=== PATIENT | male | born 1960 | race Caucasian/White ===

== ENCOUNTER 2022-04-23 12:33 | Observation (INO) | payer MEDICAID, SELFPAY ==
[2022-04-23] VITALS (7 sets, daily range): BP systolic 130–158; BP diastolic 79–101; PULSE 81–107; RESP 14–18; TEMP 36.6–37.2; O2SAT 97–100; BMI 25.7
--- NOTE | 2022-04-23 14:03 | EKG12_ITS ---
Test Reason : PRE-OP Blood Pressure : / mmHG Vent. Rate : 079 BPM Atrial Rate : 079 BPM P-R Int : 162 ms QRS Dur : 094 ms QT Int : 376 ms P-R-T Axes : 077 080 078 degrees QTc Int : 431 ms Normal sinus rhythm Normal ECG No previous ECGs available Confirmed by DANA GAY, BRANDY ([id number]), graphics editor SHE MOELLER ([id number]) on 04/25/2022 10:16:48 AM Referred By: ILENE Confirmed By:BRANDY CORTEZ MD
--- NOTE | 2022-04-23 14:43 | NURSING ---
Report given to OR and patient being taken down at this time to surgery
--- NOTE | 2022-04-23 15:00 | PCM.HP.STD ---
HPI - General General Date of Admission: 04/23/22 Date of Service: 04/23/22 Chief Complaint: Left renal colic HPI Narrative RANDALL PARKS, is a 61 M who presents to the outside emergency room second time with severe pain in the left side from stones in the left ureter and the left proximal ureter hydronephrosis today when taken the patient to surgery for cystoscopy and stent placed to alleviate the pain. And then he will be discharged home to his [place] [facility] COUNTS INCLUDE 234 BEDS AT THE [facility] Medical History Alcohol abuse Anxiety Bipolar disorder COPD (chronic obstructive pulmonary disease) CPAP (continuous positive airway pressure) dependence Dementia Depression GERD (gastroesophageal reflux disease) High cholesterol History of stress test Hypertension Kidney stones Migraines Seizures Smoker Home Medications acetaminophen 650 mg tablet 650 mg PO Q4H PRN Pain 04/23/22 [History Last Taken Unknown] atorvastatin 10 mg tablet 10 mg PO QPM cholesterol 04/23/22 [History Last Taken Unknown] buspirone 10 mg tablet 10 mg PO BID mood 04/23/22 [History Last Taken Unknown] ciprofloxacin HCl 500 mg tablet (Cipro) 500 mg PO BID antibiotic 04/23/22 [History Last Taken Unknown] clonidine HCl 0.1 mg tablet 0.1 mg PO TID blood pressure 04/23/22 [History Last Taken Unknown] cyanocobalamin (vitamin B-12) 500 mcg tablet 1,000 mcg PO DAILY Check with primary doctor 04/23/22 [History Last Taken Unknown] diltiazem HCl 180 mg capsule,extended release 24 hr 180 mg PO DAILY hypertension 04/23/22 [History Last Taken Unknown] donepezil 10 mg tablet 10 mg PO QHS Check with primary doctor 04/23/22 [History Last Taken Unknown] famotidine 20 mg tablet 20 mg PO DAILY stomach 04/23/22 [History Last Taken Unknown] ferrous sulfate 325 mg (65 mg iron) tablet 325 mg PO BID supplement 04/23/22 [History Last Taken Unknown] fluticasone 250 mcg-salmeterol 50 mcg/dose blistr powdr for inhalation (Advair Diskus) 1 inh inhalation BID copd 04/23/22 [History Last Taken Unknown] lactulose 10 gram/15 mL oral solution 30 ml PO BID constipation 04/23/22 [History Last Taken Unknown] mirtazapine 45 mg tablet 45 mg PO QHS mood 04/23/22 [History Last Taken Unknown] naltrexone 50 mg tablet 25 mg PO DAILY alcohol dependence 04/23/22 [History Last Taken Unknown] nortriptyline 10 mg capsule 10 mg PO QHS Check with primary doctor 04/23/22 [History Last Taken Unknown] ondansetron HCl 4 mg tablet 4 mg PO Q8H PRN Nausea 04/23/22 [History Last Taken Unknown] roflumilast 500 mcg tablet 500 mcg PO DAILY copd 04/23/22 [History Last Taken Unknown] sertraline 100 mg tablet 200 mg PO QHS mood 04/23/22 [History Last Taken Unknown] sumatriptan succinate 50 mg tablet 50 mg PO Q2H PRN migraines 04/23/22 [History Last Taken Unknown] tamsulosin 0.4 mg capsule (Flomax) 0.4 mg PO DAILY kidney stones 04/23/22 [History Last Taken Unknown] thiamine HCl (vitamin B1) 100 mg tablet 100 mg PO DAILY supplement 04/23/22 [History Last Taken Unknown] topiramate 100 mg tablet 100 mg PO BID heart 04/23/22 [History Last Taken Unknown] umeclidinium 62.5 mcg/actuation blister powder for inhalation 1 inh inhalation DAILY Check with primary doctor 04/23/22 [History Last Taken Unknown] Allergy/AdvReac Type Severity Reaction Status Date / Time Penicillins Allergy unknown, Verified 04/23/22 12:34 was told not to take it as a child Surgical History unable to obtain Social History Smoking Status: Current every day smoker tobacco type: cigarettes ROS Constitutional Constitutional: Denies chills, fever(s) or malaise Eyes Eyes: Denies blurry vision or change in vision ENT HEENT: Reports none Cardiovascular Cardiovascular: Denies chest pain or palpitations Respiratory/Chest Respiratory/Chest: Denies cough or shortness of breath with exertion Gastrointestinal Gastrointestinal: Denies abdominal pain, constipation or diarrhea Musculoskeletal Musculoskeletal: Denies back pain, joint stiffness or joint swelling Integumentary Integumentary: Denies dry skin, jaundice, lesions or rash Neurologic Neurologic: Denies confusion, syncope or weakness Psychiatric Psychiatric: Reports none; Denies anxiety or depression Endocrine Endocrinology: Denies excessive sweating, fatigue or flushing Hematologic/Lymphatic Hematologic/Lymphatic: Denies anemia, easy bleeding or easy bruising Vital Signs Vital Signs Vital Signs: 04/23/22 13:21 Temperature 97.9 F Temperature Source Oral Pulse Rate 81 Respiratory Rate 18 Blood Pressure 142/90 H Blood Pressure Mean 107 Blood Pressure Source Monitor Blood Pressure Position Semi-Fowlers Blood Pressure Location Right Arm Pulse Ox 99 Oxygen Delivery Method Room Air Weight Weight: 93.5 kg Body Mass Index (BMI) 25.7 Physical Exam Const alert and oriented x3 General Appearance: cooperative HEENT normocephalic and head/scalp atraumatic Eyes PERRL and EOMs intact bilaterally Neck supple, no JVD and no carotid bruits Resp normal respiratory effort, normal air movement and clear to auscultation bilaterally Cardio regular rate and no murmurs GI normal to inspection, nondistended, normoactive bowel sounds and soft to palpation Extremity normal capillary refill General Extremity: no tenderness to palpation of joints or extremities; Negative for edema Skin no rashes or lesions noted and no wounds General Skin Exam: no breakdown Neuro CN's II-XII intact bilaterally Psych affect normal Appearance: appropriate Results Medical Records Data Attestation: I reviewed the patient's medical records Lab / Micro Data Attestation: I reviewed the patient's lab results. CT scan reviewed Assessment & Plan Assessment/Plan (1) Kidney stones: PLAN: Left kidney stones causing obstruction severe pain off-and-on plan for stent placement to stabilize the patient and then will bring him back for shockwave lithotripsy.
--- NOTE | 2022-04-23 15:17 | PCM.OPRPT ---
Report of Operation Date of Procedure: 04/23/22 Pre-Operative Diagnosis: Left obstructing kidney stone Post-Operative Diagnosis: Same Surgery/Procedure Performed:: Cystoscopy left stent placement left retrograde pyelogram Description of Surgical Findings:: Patient was taken back to the operating room after induction of general anesthesia, the patient was placed in dorsolithotomy position. The urethra and genitals were prepped and draped in usual sterile fashion. Using a 21 Gambian rigid cystourethroscope the entire length of the urethra was normal then went into the bladder. Identified the trigone the left and right ureteral orifice. I then cannulated the Left ureteral orifice and advanced a wire up into the kidney. I then backloaded a 5 Gambian open ended catheter over the wire and injected contrast to delineate the anatomy. After the retrograde was performed I then used fluoroscopic images and guidance to advanced a wire up into the kidney and over the 0.038 glidewire I advanced a 6 Gambian by 26 cm double pigtail stent. I then pulled the 0.038 Glidewire off and the stent coiled in the kidney bladder good position. The bladder was then drained. We confirmed the position of the stent by fluoroscopy. Patient anesthetic was reversed and was taken back to the PACU in good condition. Surgeon: Estrada Guerra Type of Anesthesia: General Drains: left stent Admit VTE Documentation VTE Present on Admission: No VTE Mechan Device Prophylaxis: SCD's
--- NOTE | 2022-04-23 15:18 | DCINST_ITS ---
Discharge Instructions Diet Discharge Diet: No restrictions Activity Discharge Activity: Return to Normal Activity Follow Up Care Please Follow Up With: Estrada Guerra MD When: call office to get set up for shockwave lithotripsy Test Results: Test results from this visit will be discussed in further detail at your follow- up appointment, if applicable. Discharge Plan Admission Admit Date/Time: 04/23/22 12:08 Attending Provider: Estrada Guerra Primary Care Provider: Becky Gil Discharge Orders/Prescriptions Prescriptions: No Action ciprofloxacin HCl [Cipro] 500 mg Tablet 500 mg PO BID Rx Instructions: for 10 days, started 04/18/22 buspirone 10 mg Tablet 10 mg PO BID mirtazapine 45 mg Tablet 45 mg PO QHS fluticasone propion-salmeterol [Advair Diskus] 250-50 mcg/dose Blister With Device 1 inh INHALATION BID clonidine HCl 0.1 mg Tablet 0.1 mg PO TID atorvastatin 10 mg Tablet 10 mg PO QPM diltiazem HCl [DILT-CD] 180 mg Capsule,Extended Release 24hr 180 mg PO DAILY donepezil 10 mg Tablet 10 mg PO QHS ondansetron HCl [Zofran] 4 mg Tablet 4 mg PO Q8H PRN (Reason: Nausea) sertraline 100 mg Tablet 200 mg PO QHS acetaminophen 650 mg Tablet 650 mg PO Q4H PRN (Reason: Pain) famotidine 20 mg Tablet 20 mg PO DAILY nortriptyline 10 mg Capsule 10 mg PO QHS naltrexone 50 mg Tablet 25 mg PO DAILY sumatriptan succinate 50 mg Tablet 50 mg PO Q2H PRN (Reason: migraines) Rx Instructions: do not exceed 4 doses per 24 hrs thiamine HCl (vitamin B1) 100 mg Tablet 100 mg PO DAILY cyanocobalamin (vitamin B-12) 500 mcg Tablet 1,000 mcg PO DAILY tamsulosin [Flomax] 0.4 mg Capsule 0.4 mg PO DAILY ferrous sulfate 325 mg (65 mg iron) Tablet 325 mg PO BID topiramate 100 mg Tablet 100 mg PO BID lactulose 10 gram/15 mL Solution 30 ml PO BID roflumilast 500 mcg Tablet 500 mcg PO DAILY umeclidinium 62.5 mcg/actuation Blister With Device 1 inh INHALATION DAILY Referrals / Follow Up: Becky Gil MD [Primary Care Provider] - Disposition Discharge Orders: Discharge Patient (Routine); Ordered 04/23/22 Ordered By: Dr. Estrada Guerra
[2022-04-23] MEDS: oxyCODONE 5 MG Tablet PO (18:11)
[2022-04-23] MEDS: Lactated Ringers 1,000 ML 100 ML IV (19:33)
--- NOTE | 2022-04-23 20:02 | NURSING ---
pt having severe left side abd pain and pain with urinating rating it a 10/10, bladder scanned 123 left in bladder then voided. will call dr lal for pain meds
[2022-04-23] MEDS: Phenazopyridine 95 MG Tablet PO (20:52)
[2022-04-23] MEDS: Morphine 2 MG/ML Syringe IV (20:58)
[2022-04-24] MEDS: oxyCODONE 5 MG Tablet PO ×3 (00:21→14:18)
[2022-04-24 02:30] VITALS: BP 129/85; PULSE 63; RESP 16; TEMP 36.8; O2SAT 96
[2022-04-24] MEDS: Morphine 2 MG/ML Syringe IV (03:24)
[2022-04-24] MEDS: Phenazopyridine 95 MG Tablet PO (05:41)
[2022-04-24] MEDS: Lactated Ringers 1,000 ML 100 ML IV (05:41)
[2022-04-24] MEDS: Acetaminophen 325 MG Tablet 650 MG PO ×2 (07:45→14:18)
--- NOTE | 2022-04-24 07:55 | PCM.TXEXTCAR ---
Diet Diet Order/Speech Therapy: 04/23/22 15:18 Diet: Regular - General Is pt able to select menu?: Yes Problem/Diagnosis (1) Kidney stones: Status: Acute Code(s): N20.0 - Calculus of kidney Plan: Left kidney stones causing obstruction severe pain off-and-on plan for stent placement to stabilize the patient and then will bring him back for shockwave lithotripsy. Allergies/Procedures Done in Hospital Allergies Penicillins Allergy (Verified 04/23/22 12:34) unknown, was told not to take it as a child Type of Care/Length of Stay Estimated LOS: More Than 30 Days Type of Care Needed: Skilled Rehab Potential: Good Prognosis: Good Additional Orders/Day of Discharge Day of Discharge: 04/24/22 Follow Up Care Please Follow Up With: Estrada Guerra MD Discharge Plan Admission Admit Date/Time: 04/23/22 12:33 Primary Reason for Your Visit: kidney stone Attending Provider: Estrada Guerra Primary Care Provider: Becky Gil Discharge Orders/Prescriptions Prescriptions: New ibuprofen 600 mg tablet 600 mg PO Q6H PRN (Reason: pain) 7 Days Qty: 20 0RF Continued ciprofloxacin HCl [Cipro] 500 mg Tablet 500 mg PO BID Rx Instructions: for 10 days, started 04/18/22 buspirone 10 mg Tablet 10 mg PO BID mirtazapine 45 mg Tablet 45 mg PO QHS fluticasone propion-salmeterol [Advair Diskus] 250-50 mcg/dose Blister With Device 1 inh INHALATION BID clonidine HCl 0.1 mg Tablet 0.1 mg PO TID atorvastatin 10 mg Tablet 10 mg PO QPM diltiazem HCl 180 mg Capsule,Extended Release 24hr 180 mg PO DAILY donepezil 10 mg Tablet 10 mg PO QHS ondansetron HCl 4 mg Tablet 4 mg PO Q8H PRN (Reason: Nausea) sertraline 100 mg Tablet 200 mg PO QHS acetaminophen 650 mg Tablet 650 mg PO Q4H PRN (Reason: Pain) famotidine 20 mg Tablet 20 mg PO DAILY nortriptyline 10 mg Capsule 10 mg PO QHS naltrexone 50 mg Tablet 25 mg PO DAILY sumatriptan succinate 50 mg Tablet 50 mg PO Q2H PRN (Reason: migraines) Rx Instructions: do not exceed 4 doses per 24 hrs thiamine HCl (vitamin B1) 100 mg Tablet 100 mg PO DAILY cyanocobalamin (vitamin B-12) 500 mcg Tablet 1,000 mcg PO DAILY tamsulosin [Flomax] 0.4 mg Capsule 0.4 mg PO DAILY ferrous sulfate 325 mg (65 mg iron) Tablet 325 mg PO BID topiramate 100 mg Tablet 100 mg PO BID lactulose 10 gram/15 mL Solution 30 ml PO BID roflumilast 500 mcg Tablet 500 mcg PO DAILY umeclidinium 62.5 mcg/actuation Blister With Device 1 inh INHALATION DAILY Referrals / Follow Up: Estrada Guerra MD [Med Staff - Active Staff] - Becky Gil MD [Primary Care Provider] - Disposition Discharge Orders: Discharge Patient (Routine); Ordered 04/24/22 Ordered By: Dr. Estrada Guerra
[2022-04-24 08:01] VITALS: BP 142/95; PULSE 78; RESP 16; TEMP 36.8; O2SAT 100
[2022-04-24 11:42] VITALS: BP 130/92; PULSE 81; RESP 16; TEMP 37.1; O2SAT 94
--- NOTE | 2022-04-24 12:09 | CASEMGMT ---
Social Work Pt is a current correction resident at [facility]. Per physician, pt is ready for discharge today. Phone call to Carmen at [facility] and pt can return today. Orders and negative covid test faxed to [place]. Transportation arranged with physician ambulance for 2:00 pickup via wheelchair van. Phone call to pt Guardian David Reyez and updated on pt discharge and he is agreeable. SW met with pt and informed of discharge plan and he is also agreeable. Carmen at [facility] and pt nurse notified of discharge time. Plan: [facility], intermediate level of care GURJIT Cowan
--- NOTE | 2022-04-24 13:08 | NURSING ---
attempted to call report to [place] but no answer. message left to return call
== END 2022-04-24 15:23 ==
PROVIDERS: Admitting Provider Urology; PCP Internal Medicine Infectious Disease; Visit Provider Urology
PROC: (CPT 52005; principal; 2022-04-23 14:50)
DX: N20.0 Calculus of kidney (principal); J44.9 Chronic obstructive pulmonary disease, unspecified; F31.9 Bipolar disorder, unspecified; E78.00 Pure hypercholesterolemia, unspecified; F17.210 Nicotine dependence, cigarettes, uncomplicated; I10 Essential (primary) hypertension; Z79.899 Other long term (current) drug therapy; K21.9 Gastro-esophageal reflux disease without esophagitis
CPT/HCPCS: 52005; 00910; 97802; C1769; C2617; 76000; 87426; 93005; 96361; 96374; 96376; 99218; 99406; J7120; G0378

== ENCOUNTER 2022-05-03 11:27 | Day surgery (SDC) | payer MEDICAID, SELFPAY ==
[2022-05-03] VITALS (7 sets, daily range): BP systolic 102–113; BP diastolic 69–86; PULSE 76–93; RESP 16–18; TEMP 36.6–36.9; O2SAT 97–100; BMI 25.3
--- NOTE | 2022-05-03 11:45 | RAD_ITS ---
STUDY: X-RAY - ABDOMEN/PELVIS REASON FOR EXAM: Male, 61 years old. preop TECHNIQUE: Single AP view of the abdomen / pelvis. COMPARISON: None. FINDINGS: Normal visualized lung bases. There is an unremarkable bowel gas pattern. The left-sided double-J stent catheter seen with the proximal tip in the renal pelvis and distal tip in the left side of the bladder. There is a 9.4 mm calculus in the left renal pelvis. Normal soft tissue structures. There are diffuse degenerative changes of the visualized lumbar spine. RAD/Abdomen Single View IMPRESSION: 19.4 mm calculus in the left renal pelvis. A left-sided double-J stent catheter is seen. Electronically Signed: Jacek Vick MD at 11:56 EDT ,
[2022-05-03] MEDS: Lactated Ringers 1,000 ML 15 ML IV (12:05)
[2022-05-03] MEDS: Cefazolin 2 GM in 0.9% Normal Saline 100 ML IV (13:00)
--- NOTE | 2022-05-03 13:21 | PCM.HP.STD ---
HPI - General General Date of Service: 05/03/22 HPI Narrative RANDALL PARKS, is a 61 M who presents for treatment of left kidney stone and remove stent [facility] Medical History (Updated 04/28/22 @ 14:57 by Lynette Pinto) Alcohol abuse Anemia Anxiety Bipolar disorder COPD (chronic obstructive pulmonary disease) CPAP (continuous positive airway pressure) dependence Dementia Depression Fatty liver GERD (gastroesophageal reflux disease) High cholesterol History of diverticulitis History of stress test Hypertension Kidney stones Migraines Seizures Sleep apnea Smoker Uses wheelchair Wears glasses Home Medications acetaminophen 650 mg tablet 650 mg PO Q4H PRN Pain 04/23/22 [History Last Taken Unknown] atorvastatin 10 mg tablet 10 mg PO QPM cholesterol 04/23/22 [History Last Taken Unknown] buspirone 10 mg tablet 10 mg PO BID mood 04/23/22 [History Last Taken 05/03/22] clonidine HCl 0.1 mg tablet 0.1 mg PO TID blood pressure 04/23/22 [History Last Taken 05/03/22] cyanocobalamin (vitamin B-12) 500 mcg tablet 1,000 mcg PO DAILY Check with primary doctor 04/23/22 [History Last Taken Unknown] diltiazem HCl 180 mg capsule,extended release 24 hr 180 mg PO DAILY hypertension 04/23/22 [History Last Taken 05/03/22] donepezil 10 mg tablet 10 mg PO QHS dementia 04/23/22 [History Last Taken Unknown] famotidine 20 mg tablet 20 mg PO DAILY stomach 04/23/22 [History Last Taken 05/03/22] ferrous sulfate 325 mg (65 mg iron) tablet 325 mg PO BID supplement 04/23/22 [History Last Taken 05/03/22] fluticasone 250 mcg-salmeterol 50 mcg/dose blistr powdr for inhalation (Advair Diskus) 1 inh inhalation BID copd 04/23/22 [History Last Taken Unknown] ibuprofen 600 mg tablet 600 mg PO Q6H PRN pain 7 days #20 tabs 04/23/22 [Rx Last Taken Unknown] lactulose 10 gram/15 mL oral solution 30 ml PO BID constipation 04/23/22 [History Last Taken Unknown] mirtazapine 45 mg tablet 45 mg PO QHS mood 04/23/22 [History Last Taken Unknown] naltrexone 50 mg tablet 25 mg PO DAILY alcohol dependence 04/23/22 [History Last Taken 05/03/22] nortriptyline 10 mg capsule 10 mg PO QHS Check with primary doctor 04/23/22 [History Last Taken Unknown] ondansetron HCl 4 mg tablet 4 mg PO Q8H PRN Nausea 04/23/22 [History Last Taken Unknown] roflumilast 500 mcg tablet 500 mcg PO DAILY copd 04/23/22 [History Last Taken 05/03/22] sertraline 100 mg tablet 200 mg PO QHS mood 04/23/22 [History Last Taken Unknown] sumatriptan succinate 50 mg tablet 50 mg PO Q2H PRN migraines 04/23/22 [History Last Taken Unknown] tamsulosin 0.4 mg capsule (Flomax) 0.4 mg PO DAILY kidney stones 04/23/22 [History Last Taken 05/03/22] thiamine HCl (vitamin B1) 100 mg tablet 100 mg PO DAILY supplement 04/23/22 [History Last Taken 05/03/22] topiramate 100 mg tablet 100 mg PO BID heart 04/23/22 [History Last Taken 05/03/22] oxycodone-acetaminophen 5 mg-325 mg tablet 1 tab PO Q6H PRN Pain 04/28/22 [History Last Taken Unknown] umeclidinium 62.5 mcg/actuation blister powder for inhalation (Incruse Ellipta) 1 inh inhalation DAILY 04/28/22 [History Last Taken Unknown] Allergy/AdvReac Type Severity Reaction Status Date / Time Penicillins Allergy unknown, Verified 05/03/22 12:18 was told not to take it as a child Surgical History (Updated 04/28/22 @ 14:47 by Lynette Pinto) History of colonoscopy History of esophagogastroduodenoscopy (EGD) History of hernia repair Social History Smoking Status: Current every day smoker tobacco type: cigarettes Vital Signs Vital Signs Vital Signs: 05/03/22 12:21 05/03/22 12:21 Temperature 97.9 F Temperature Source Temporal Pulse Rate 91 Respiratory Rate 18 Respiratory Pattern Normal Blood Pressure 108/74 Blood Pressure Mean 85 Blood Pressure Source Monitor Blood Pressure Position Semi-Fowlers Blood Pressure Location Left Arm Pulse Ox 97 Oxygen Delivery Method Room Air Weight Weight: 92 kg Body Mass Index (BMI) 25.3 Results Radiology Impression KUB X-Ray 05/03/22 11:45 IMPRESSION: 19.4 mm calculus in the left renal pelvis. A left-sided double-J stent catheter is seen. Electronically Signed: Jacek Vick MD at 11:56 EDT ,
--- NOTE | 2022-05-03 13:22 | DCINST_ITS ---
Discharge Instructions Diet Discharge Diet: No restrictions and Light diet - advance as tolerated Activity Discharge Activity: Return to Normal Activity and No Restrictions Follow Up Care Test Results: Test results from this visit will be discussed in further detail at your follow- up appointment, if applicable. Discharge Plan Admission Primary Reason for Your Visit: kidney stone Attending Provider: Estrada Guerra Primary Care Provider: Becky Gil Discharge Orders/Prescriptions Prescriptions: Continued buspirone 10 mg Tablet 10 mg PO BID mirtazapine 45 mg Tablet 45 mg PO QHS fluticasone propion-salmeterol [Advair Diskus] 250-50 mcg/dose Blister With Device 1 inh INHALATION BID clonidine HCl 0.1 mg Tablet 0.1 mg PO TID atorvastatin 10 mg Tablet 10 mg PO QPM diltiazem HCl 180 mg Capsule,Extended Release 24hr 180 mg PO DAILY donepezil 10 mg Tablet 10 mg PO QHS ondansetron HCl 4 mg Tablet 4 mg PO Q8H PRN (Reason: Nausea) sertraline 100 mg Tablet 200 mg PO QHS acetaminophen 650 mg Tablet 650 mg PO Q4H PRN (Reason: Pain) famotidine 20 mg Tablet 20 mg PO DAILY nortriptyline 10 mg Capsule 10 mg PO QHS naltrexone 50 mg Tablet 25 mg PO DAILY sumatriptan succinate 50 mg Tablet 50 mg PO Q2H PRN (Reason: migraines) Rx Instructions: do not exceed 4 doses per 24 hrs thiamine HCl (vitamin B1) 100 mg Tablet 100 mg PO DAILY cyanocobalamin (vitamin B-12) 500 mcg Tablet 1,000 mcg PO DAILY tamsulosin [Flomax] 0.4 mg Capsule 0.4 mg PO DAILY ferrous sulfate 325 mg (65 mg iron) Tablet 325 mg PO BID topiramate 100 mg Tablet 100 mg PO BID lactulose 10 gram/15 mL Solution 30 ml PO BID roflumilast 500 mcg Tablet 500 mcg PO DAILY ibuprofen 600 mg tablet 600 mg PO Q6H PRN (Reason: pain) 7 Days Qty: 20 0RF oxycodone-acetaminophen 5-325 mg Tablet 1 tab PO Q6H PRN (Reason: Pain) Incruse Ellipta 62.5 mcg/actuation Blister With Device 1 inh INHALATION DAILY Referrals / Follow Up: Estrada Guerra MD [Med Staff - Active Staff] - Becky Gil MD [Primary Care Provider] - Disposition Disposition (needs filled in before D/C Order can be placed): Home, Self Care
--- NOTE | 2022-05-03 13:22 | PCM.OPRPT ---
Report of Operation Date of Procedure: 05/03/22 Pre-Operative Diagnosis: Left kidney stone Post-Operative Diagnosis: same Surgery/Procedure Performed:: cystoscopy and left stent removal, and left ESWL Description of Surgical Findings:: Patient presents to the hospital for treatment of a kidney stone with shockwave lithotripsy. In the preoperative area and x-ray was done to confirm the location of the stone. The x-ray was reviewed and the stone location was reviewed. In the preoperative setting I spoke with the patient regarding the treatment of the stone how the treatment would be conducted and the expectations after surgery. The patient understands there is a risk of bleeding and infection. Also discussed the very rare risk of hematoma or damage to the kidney. We also discussed the risk that the shockwave machine will fail to break the stone adequately and that the patient may need other surgical procedures. We also discussed the possibility that the patient may need a stent after the procedure. After reviewing the procedure with the patient, the patient is signed the consent form all the patient's questions were addressed and was taken back to the operating room for treatment of a kidney stone. Patient was taken back to the operating room, patient was identified by the nursing staff, we identified the side of the treatment and the patient side of treatment had been marked by my initials. The patient underwent general anesthetic and was placed supine on the lithotripter table. We then used fluoroscopy to identify the stone on the left side. We then positioned the patient under the lithotripter and we used triangulation technique to identify the location of the stone and then we made sure that the stone was engaged in the F2 focal point of F2 Donier lithoprior machine. Once the patient was positioned appropriately and the stone was identified and placed in the F2 focal point of the lithotripter machine we then proceeded with shockwave lithotripsy. In the beginning the shockwave was delivered at a rate of 90 shocks per minute, we monitor the EKG for any ectopy. The power was slowly increased to 5 kV and subsequently at the 7 kV. We then proceeded with the treatment we move the therapy had around during the treatment to make sure the stone stayed in the F2 focal point during the entire treatment and after 3000 shockwaves were delivered to the stone under fluoroscopic guidance the treatment was completed. The patient's urethra and genitals were prepped and draped in usual sterile fashion. I went into the bladder with a 21 Finnish rigid cystourethroscope. I grabbed the stent emanating from the left ureteral orifice and then gently remove the stent from the bladder. I then drained the patient's bladder. The patient was given instructions to call the office to make an a follow-up appointment with an xray to evaluate the success of the treatment, pateint understands that its possible the stones may need another procedure.At this point the patient's anesthetic was reversed patient was extubated and taken back to the PACU in stable condition. Surgeon: Estrada Guerra Type of Anesthesia: General Drains: stent removed.
[2022-05-03] MEDS: Lubricating Jelly 60 GM Tube 30 GM (13:24)
[2022-05-03] MEDS: Ketorolac 15 MG/ML Vial IV (14:14)
== END 2022-05-03 15:09 | disposition home or self-care (01) ==
LOC: SDC 11:29 → AC 11:34
PROVIDERS: PCP Internal Medicine Infectious Disease; Visit Provider Urology
PROC: (CPT 50590; principal; 2022-05-03 14:50)
DX: N20.0 Calculus of kidney (principal); J44.9 Chronic obstructive pulmonary disease, unspecified; F31.9 Bipolar disorder, unspecified; F17.210 Nicotine dependence, cigarettes, uncomplicated; E78.00 Pure hypercholesterolemia, unspecified; K76.0 Fatty (change of) liver, not elsewhere classified; G47.30 Sleep apnea, unspecified; F41.9 Anxiety disorder, unspecified; Z79.899 Other long term (current) drug therapy
CPT/HCPCS: 50590; 52310; 00873; 74018; J7120; C1769; J2405